=== PATIENT | female | born 1945 | race Caucasian/White ===

== ENCOUNTER 2020-05-01 12:49 | Outpatient (CLI) | payer MEDICARE, OTHER | END 2020-05-01 23:59 | disposition home or self-care (01) | LOC: CFH 12:49 | PROVIDERS: ATTEND Family Medicine | DX: Z12.2 Encounter for screening for malignant neoplasm of respiratory organs (principal); J43.9 Emphysema, unspecified; R91.8 Other nonspecific abnormal finding of lung field; J92.9 Pleural plaque without asbestos; T17.890A Other foreign object in other parts of respiratory tract causing asphyxiation, initial encounter; M51.34 Other intervertebral disc degeneration, thoracic region; X58.XXXA Exposure to other specified factors, initial encounter; Y93.89 Activity, other specified; Y92.89 Other specified places as the place of occurrence of the external cause; Y99.8 Other external cause status; Z87.891 Personal history of nicotine dependence | CPT/HCPCS: 71271 ==

== ENCOUNTER 2020-08-10 14:41 | Outpatient (CLI) | payer MEDICARE ==
[2020-08-10] MEDS ORDERED: NAPR220C2 PO (15:14)
[2020-08-10] MEDS ORDERED: UMEC1DIS INH (15:31)
== END 2020-08-10 23:59 | disposition home or self-care (01) ==
LOC: STAR 14:41
PROVIDERS: ATTEND Urology
DX: Z01.818 Encounter for other preprocedural examination (principal); N32.89 Other specified disorders of bladder
CPT/HCPCS: 93005

== ENCOUNTER 2020-08-16 13:38 | Day surgery (SDC) | payer MEDICARE ==
[~2020-08-16] VITALS: Ht 160 cm; Wt 36.0 kg
[~2020-08-16 13:38] MED LIST: ALBUTEROL HFA 90 MCG/SPRAY INH ONE; ALBUTEROL/IPRATROPIUM 2.5MG/0.5MG, 3 ML NPPB ONE; DEXMEDETOMIDINE 200 MCG/2 ML ONE; NAPR220C2 PO; UMEC1DIS INH
[2020-08-16] MEDS ORDERED: CHLORHEXIDINE 15 ML UDC PO ONE (14:00)
[2020-08-16] MEDS ORDERED: LACTATED RINGERS 1,000 ML IV SCH (14:00)
[2020-08-16] MEDS ORDERED: LIDOCAINE-MPF 1%, 2ML INFIL ONE (14:00)
[2020-08-16] MEDS ORDERED: FENTANYL PF 100 MCG/2ML ONE ×2 (14:01→14:39)
[2020-08-16] MEDS ORDERED: MIDAZOLAM 1 MG/ML, 2ML ONE (14:01)
[2020-08-16] MEDS ORDERED: GEMCITABINE HCL 1,000 MG in SODIUM CHLORIDE 0.9% 23.7 ML BLADIN SCH (14:30)
[2020-08-16] MEDS ORDERED: GEMCITABINE HCL 1,000 MG in SODIUM CHLORIDE 0.9% 23.7 ML IS ONE (15:00)
[2020-08-16] MEDS ORDERED: GEMCITABINE HCL 1,000 MG in SODIUM CHLORIDE 0.9% 23.7 ML IS SCH (15:30)
[2020-08-16 15:37] LABS: INTERNATIONAL NORMALIZED RATIO 0.96 (0.93-1.1); PROTHROMBIN TIME 10.3 Seconds (9.6-11.5)
[2020-08-16] MEDS ORDERED: ONDANSETRON 2MG/ML, 2ML ONE (15:47)
[2020-08-16] MEDS ORDERED: PROPOFOL 10 MG/ML, 20ML ONE (15:47)
[2020-08-16] MEDS ORDERED: PHENYLEPHRINE 10 MG/ML ONE (15:47)
[2020-08-16] MEDS ORDERED: CEFAZOLIN 1,000 MG ONE (15:47)
[2020-08-16] MEDS ORDERED: FENTANYL PF 100 MCG/2ML IV PRN (16:30)
[2020-08-16] MEDS ORDERED: EPHEDRINE 50 MG/ML, 1ML IVPush PRN (16:30)
[2020-08-16] MEDS ORDERED: LABETALOL 5MG/ML, 20ML IV PRN (16:30)
[2020-08-16] MEDS ORDERED: HYDROmorphone 1 MG/ML, 1ML INJ IVPush PRN (16:30)
[2020-08-16] MEDS ORDERED: hydrALAzine 20 MG/ML, 1ML IV PRN (16:30)
[2020-08-16] MEDS ORDERED: DIAZEPAM 5 MG/ML, 2ML IVPush PRN (16:30)
[2020-08-16] MEDS ORDERED: ALBUTEROL SULFATE 2.5 MG/3 ML NPPB PRN (16:30)
[2020-08-16] MEDS ORDERED: HALOPERIDOL 5 MG/ML IV PRN (16:30)
[2020-08-16] MEDS ORDERED: ONDANSETRON 2MG/ML, 2ML IVPush PRN (16:30)
[2020-08-16] MEDS ORDERED: METOPROLOL 1 MG/ML, 5ML IV PRN (16:30)
[2020-08-16] MEDS ORDERED: ACETAMINOPHEN 325 MG TABLET PO PRN (16:30)
[2020-08-16] MEDS ORDERED: METOCLOPRAMIDE 5 MG/ML, 2ML IVPush PRN (16:30)
[2020-08-16] MEDS ORDERED: DIPHENHYDRAMINE 50 MG/ML, 1ML IVPush PRN (16:30)
[2020-08-16] MEDS ORDERED: PROMETHAZINE 25 MG/ML, 1ML IVPush PRN (16:30)
[2020-08-16] MEDS ORDERED: OXYcodone 5 MG/5 ML ORAL.SOL UDC PO PRN (16:30)
[2020-08-16] MEDS ORDERED: ALBUTEROL/IPRATROPIUM 2.5MG/0.5MG, 3 ML NPPB PRN (16:30)
== END 2020-08-16 18:57 | disposition home or self-care (01) ==
LOC: OUT 13:38
PROVIDERS: ATTEND Urology
DX: C67.9 Malignant neoplasm of bladder, unspecified (principal); N32.89 Other specified disorders of bladder; J43.8 Other emphysema; F41.9 Anxiety disorder, unspecified; F17.210 Nicotine dependence, cigarettes, uncomplicated; Z88.3 Allergy status to other anti-infective agents; Z91.013 Allergy to seafood; Z72.89 Other problems related to lifestyle; Z79.899 Other long term (current) drug therapy; Z98.890 Other specified postprocedural states; Z82.49 Family history of ischemic heart disease and other diseases of the circulatory system; Z20.822 Contact with and (suspected) exposure to COVID-19
CPT/HCPCS: 36415; 52235; 85610; 87635; 88307; J2250; J3010; J7120; J9201; J0690; J2405; J2704; J2370

== ENCOUNTER 2021-01-10 14:16 | Outpatient (CLI) | payer MEDICARE ==
[~2021-01-10 14:16] MED LIST changes: -ALBUTEROL HFA 90 MCG/SPRAY INH ONE; -ALBUTEROL/IPRATROPIUM 2.5MG/0.5MG, 3 ML NPPB ONE; -DEXMEDETOMIDINE 200 MCG/2 ML ONE
== END 2021-01-10 23:59 | disposition home or self-care (01) ==
LOC: STAR 14:16
PROVIDERS: ATTEND Orthopaedic Surgery
DX: Z01.812 Encounter for preprocedural laboratory examination (principal); Z20.822 Contact with and (suspected) exposure to COVID-19; M25.512 Pain in left shoulder
CPT/HCPCS: 87081; 87147; 87635

== ENCOUNTER 2021-01-16 08:45 | Day surgery (SDC) | payer MEDICARE ==
[~2021-01-16] VITALS: Ht 161.3 cm; Wt 41.4 kg
[~2021-01-16 08:45] MED LIST changes: +CLINDAMYCIN 150 MG/ML, 6ML ONE; +TRANEXAMIC ACID 100 MG/ML, 10ML ONE; +VANCOMYCIN 1,000 MG ONE
[2021-01-16] MEDS ORDERED: FENTANYL PF 250 MCG/5ML ONE (09:18)
[2021-01-16] MEDS ORDERED: MIDAZOLAM 1 MG/ML, 2ML ONE (09:18)
[2021-01-16] MEDS ORDERED: PROPOFOL 10 MG/ML, 20ML ONE (09:19)
[2021-01-16 09:24] VITALS: BP 145/81
[2021-01-16] MEDS ORDERED: LACTATED RINGERS 1,000 ML IV SCH (09:30)
[2021-01-16] MEDS ORDERED: LIDOCAINE-MPF 1%, 2ML INFIL ONE (09:30)
[2021-01-16] MEDS ORDERED: CHLORHEXIDINE 15 ML UDC PO ONE (09:30)
[2021-01-16] MEDS ORDERED: LIDOCAINE-MPF 1%, 2ML ONE (09:32)
[2021-01-16] MEDS ORDERED: CHLORHEXIDINE 15 ML UDC ONE (09:32)
[2021-01-16] MEDS ORDERED: OXYcodone 5 MG/5 ML ORAL.SOL UDC PO PRN (10:00)
[2021-01-16] MEDS ORDERED: ONDANSETRON 2MG/ML, 2ML IVPush PRN (10:00)
[2021-01-16] MEDS ORDERED: DIAZEPAM 5 MG/ML, 2ML IVPush PRN (10:00)
[2021-01-16] MEDS ORDERED: ACETAMINOPHEN 325 MG TABLET PO PRN (10:00)
[2021-01-16] MEDS ORDERED: HYDROmorphone 1 MG/ML, 1ML INJ IVPush PRN (10:00)
[2021-01-16] MEDS ORDERED: hydrALAzine 20 MG/ML, 1ML IV PRN (10:00)
[2021-01-16] MEDS ORDERED: MEPERIDINE/PF 25MG/0.5ML IVPush PRN (10:00)
[2021-01-16] MEDS ORDERED: LABETALOL 5MG/ML, 20ML IV PRN (10:00)
[2021-01-16] MEDS ORDERED: BUPIVACAINE/PF 0.5% ONE (12:49)
[2021-01-16] MEDS ORDERED: EPINEPHRINE 1 MG/ML, 1ML ONE (12:49)
[2021-01-16] MEDS ORDERED: TRANEXAMIC ACID 100 MG/ML, 10ML ONE (13:58)
[2021-01-16] MEDS ORDERED: FENTANYL PF 100 MCG/2ML ONE (14:04)
[2021-01-16] MEDS: FENTANYL PF 100 MCG/2ML IV PRN ×2 (14:09→14:30)
[2021-01-16] MEDS ORDERED: ACETAMINOPHEN 650 MG/20.3 ML UDC ONE (14:18)
[2021-01-16] MEDS ORDERED: OXYcodone 5 MG/5 ML ORAL.SOL UDC ONE (14:18)
== END 2021-01-16 16:30 | disposition home or self-care (01) ==
LOC: OUT 08:45
PROVIDERS: ATTEND Orthopaedic Surgery
DX: S42.292A Other displaced fracture of upper end of left humerus, initial encounter for closed fracture (principal); M85.812 Other specified disorders of bone density and structure, left shoulder; F17.210 Nicotine dependence, cigarettes, uncomplicated; J44.9 Chronic obstructive pulmonary disease, unspecified; M25.512 Pain in left shoulder; Z91.013 Allergy to seafood; Z88.3 Allergy status to other anti-infective agents; W19.XXXA Unspecified fall, initial encounter; Y93.89 Activity, other specified; Y92.89 Other specified places as the place of occurrence of the external cause; Y99.8 Other external cause status; Z72.89 Other problems related to lifestyle; Z98.890 Other specified postprocedural states; Z79.899 Other long term (current) drug therapy
CPT/HCPCS: 23472; 24340; 93005; C1713; C1776; J0171; J2250; J2704; J3010; J3370; J7120